=== PATIENT | female | born 1980 | race Caucasian/White ===

== ENCOUNTER → 2017-03-04 | Outpatient (CLI) | payer OTHER ==
[~2017-03-04] MED LIST: ACYC-114 PO; AMOX1TAB12 PO; DOCU-30 PO; IBUP-1222 PO; LABE300T PO; METH500T2 PO; NONE PER PT; OXYC-302 PO; PREN1TAB52 PO; SERT50TA PO; VALA500T4 PO
== END | disposition home or self-care (01) ==
LOC: CFH 12:16
PROVIDERS: ATTEND Obstetrics & Gynecology
DX: N63 Unspecified lump in breast (principal); Z80.3 Family history of malignant neoplasm of breast
CPT/HCPCS: 76641; G0206

== ENCOUNTER → 2017-09-01 | Outpatient (CLI) | payer OTHER ==
[~2017-09-01] MED LIST changes: +DOCU-131 PO; -DOCU-30 PO
== END | disposition home or self-care (01) ==
LOC: CFH 09:56
PROVIDERS: ATTEND Obstetrics & Gynecology
DX: Z12.31 Encounter for screening mammogram for malignant neoplasm of breast (principal)
CPT/HCPCS: G0202

== ENCOUNTER → 2018-09-06 | Outpatient (CLI) | payer BC ==
[~2018-09-06] MED LIST changes: -LABE300T PO; +LABE300T2 PO; +METH500T11 PO; -METH500T2 PO
== END | disposition home or self-care (01) ==
LOC: CFH 11:01
PROVIDERS: ATTEND Obstetrics & Gynecology
DX: Z12.31 Encounter for screening mammogram for malignant neoplasm of breast (principal)
CPT/HCPCS: 77067

== ENCOUNTER → 2019-09-07 | Outpatient (CLI) | payer BC | END | disposition home or self-care (01) | LOC: CFH 12:53 | PROVIDERS: ATTEND Obstetrics & Gynecology | DX: Z12.31 Encounter for screening mammogram for malignant neoplasm of breast (principal) | CPT/HCPCS: 77063; 77067 ==

== ENCOUNTER → 2020-05-29 | Outpatient (CLI) | payer BC | END | disposition home or self-care (01) | LOC: CFH 08:32 | PROVIDERS: ATTEND Obstetrics & Gynecology | DX: N63.12 Unspecified lump in the right breast, upper inner quadrant (principal); R92.8 Other abnormal and inconclusive findings on diagnostic imaging of breast | CPT/HCPCS: 76642; 77065; G0279 ==